=== PATIENT | female | born 1985 | race Caucasian/White ===

== ENCOUNTER 2022-01-25 05:30 | Emergency (ER) | payer SELFPAY ==
[2022-01-25 06:21] LABS: CORONAVIRUS COVID-19 NAA NEGATIVE (NEGATIVE); RESPIRATORY SYNCYTIAL VIR NAA NEGATIVE (NEGATIVE)
[2022-01-25] MEDS: methylPREDNISolone Acetate 80 MG/ML SDV IM ONE (06:39)
== END 2022-01-25 06:50 | disposition home or self-care (01) ==
LOC: LL.ED 05:30
DX: J03.90 Acute tonsillitis, unspecified (principal); Z88.2 Allergy status to sulfonamides; Z20.822 Contact with and (suspected) exposure to COVID-19
CPT/HCPCS: 0241U; 87081; 87430; 96372; 99283; J1040

== ENCOUNTER 2022-01-26 17:14 | Emergency (ER) | payer SELFPAY ==
[2022-01-26] MEDS ORDERED: Sodium Chloride 0.9% 10 ML Syringe FLUSH PRN (17:28)
[2022-01-26] MEDS: Sodium Chloride 0.9% 1,000 ML IV ONE ×2 (17:35→18:44)
[2022-01-26 18:01] LABS: ANION GAP 9.5 meq/L (7-15); CHLORIDE,CL 104 mmol/L (98-107); ESTIMATED GFR 88 mL/min (>=60); SODIUM,NA 139 mmol/L (136-145)
[2022-01-26] MEDS: Morphine 2 MG/ML SYRINGE IVPUSH ONE (18:11)
[2022-01-26] MEDS: Ondansetron 4 MG/2 ML SDV IVPUSH ONE (18:11)
[2022-01-26] MEDS: cefTRIAXone 2 GM Vial IVPUSH ONE (18:33)
[2022-01-26] MEDS: Morphine 10 MG/ML Syringe IV ONE (19:44)
[2022-01-26] MEDS: Ketorolac 15 MG/ML SDV IVPUSH ONE (19:54)
[2022-01-26] MEDS: methylPREDNISolone Sodium Succinate 40 MG/1 ML SDV IVPUSH ONE (20:16)
== END 2022-01-26 20:20 | disposition home or self-care (01) ==
LOC: LL.ED 17:14
DX: J03.90 Acute tonsillitis, unspecified (principal); Z88.2 Allergy status to sulfonamides; Z79.899 Other long term (current) drug therapy; Z87.891 Personal history of nicotine dependence
CPT/HCPCS: 36415; 70490; 80053; 83605; 85025; 87081; 87430; 96361; 96374; 96375; 96376; 99283; 99283-25; J0696; J1885; J2270; J2405; J2920; J7030